=== PATIENT | male | born 1960 | race Hispanic/Latino ===

== ENCOUNTER 2017-05-21 06:27 | Day surgery (SDC) | payer BC ==
[2013-08-25 09:28] VITALS: BMI 32.7
[2017-05-21] MEDS ORDERED: Propofol 10 mg/ml Inj (20 ML) ONE ×2 (07:33)
[2017-05-21] MEDS ORDERED: Lidocaine Hydrochloride 5 ML INJ ONE (07:42)
[2017-05-21] MEDS ORDERED: Lactated Ringer's 500 ML IV SCH (07:45)
--- NOTE | 2017-05-21 08:06 | CP.SDSHP ---
Same Day Surgery H & P - History Proposed Procedure: EGD/COLONSCOPY Pre-Op Diagnosis: SEE NOTES - Previous Medical/Surgical History Misc: Other Pain: 4.Moderate Pain - Allergies Allergies: Allergies No Known Allergies Allergy (Verified 05/21/17 06:58) - Physical Exam General Appearance: N Vital Signs: Vital Signs 05/21/17 05/21/17 07:05 07:32 Temperature 97 F L 97 F L Pulse Rate 72 72 Respiratory 19 19 Rate Blood Pressure 124/80 124/80 O2 Sat by Pulse 97 97 Oximetry Mental Status: Alert & Oriented x3 Neuro: WNL Heart: WNL Lungs: WNL GI: Other - {Optional Preform as Required} Breast: WNL Abdomen: Other Rectal: Other Integument: WNL : WNL Ortho: WNL ENT: WNL - Impression Pt. Evaluated Today:Candidate for Anesthesia & Procedure: Yes - Date & Time Time: 08:06 Short Stay Discharge - Short Stay Discharge Admitting Diagnosis/Reason for Visit: DYSPEPSIA Disposition: HOME/ ROUTINE
[2017-05-21] MEDS ORDERED: Belladonna-Phenobarbital PO STA (08:38)
[2017-05-21] MEDS ORDERED: Pantoprazole 40 mg EC Tab PO STA (08:39)
[2017-05-21 09:44] VITALS: RESP 15; TEMP 97
[2017-05-21 09:48] VITALS: BP 118/69; PULSE 63; O2SAT 99
== END 2017-05-21 09:35 | disposition home or self-care (01) ==
LOC: C.ENDO 06:27
PROVIDERS: ATTEND Specialist
DX: R10.84 Generalized abdominal pain (principal); K62.5 Hemorrhage of anus and rectum; R19.4 Change in bowel habit; R19.5 Other fecal abnormalities; K30 Functional dyspepsia; K57.30 Diverticulosis of large intestine without perforation or abscess without bleeding; K64.8 Other hemorrhoids; K52.9 Noninfective gastroenteritis and colitis, unspecified; K21.0 Gastro-esophageal reflux disease with esophagitis; K44.9 Diaphragmatic hernia without obstruction or gangrene; K29.70 Gastritis, unspecified, without bleeding
CPT/HCPCS: 43239; 45380; 88305; J2704; J7120